=== PATIENT | female | born 2000 | race Two or more races ===

== ENCOUNTER 2023-12-02 16:52 | Emergency (ER) | payer OTHER ==
[~2023-12-02] VITALS: Ht 157.5 cm; Wt 56.3 kg
[2023-12-02] MEDS ORDERED: IBUP1TAB5 PO (19:08)
[2023-12-02] MEDS ORDERED: BACL10TA PO (19:08)
[2023-12-02 19:25] VITALS: BP 113/66; PULSE 95; RESP 16; TEMP 98.3; O2SAT 98
[2023-12-02] MEDS: HYDROcodone-ACET 5/325MG TAB PO ONE (19:33)
[2023-12-02] MEDS: DexAMETHasone SOD PHOS 10MG/1ML VIAL INJ IM ONE (19:33)
[2023-12-02] MEDS: KETOROLAC TROMETH 60MG/2ML VIAL IM ONE (19:34)
== END 2023-12-02 19:37 | disposition home or self-care (01) ==
LOC: ER 16:52
DX: S43.402A Unspecified sprain of left shoulder joint, initial encounter (principal); Z88.6 Allergy status to analgesic agent; X50.0XXA Overexertion from strenuous movement or load, initial encounter; Y93.89 Activity, other specified; Y92.69 Other specified industrial and construction area as the place of occurrence of the external cause; Y99.8 Other external cause status
CPT/HCPCS: 73000; 96372; 99284; J1100; J1885